=== PATIENT | female | born 1995 | race African-American/Black ===

== ENCOUNTER 2019-06-12 23:41 | Emergency (ER) | payer MEDICAID ==
[~2019-06-12] VITALS: Ht 165.1 cm; Wt 97.5 kg
[2019-06-13 08:30] VITALS: BP 120/70
[2019-06-13] MEDS ORDERED: IBUPROFEN 800 MG TAB PO ONE (08:45)
[2019-06-13] MEDS ORDERED: METHOCARBAMOL 500 MG TAB PO ONE (08:45)
== END 2019-06-13 08:57 | disposition home or self-care (01) ==
LOC: ER 23:43
DX: M54.5 Low back pain (principal); M54.2 Cervicalgia; V49.49XA Driver injured in collision with other motor vehicles in traffic accident, initial encounter; Y93.89 Activity, other specified; Y99.8 Other external cause status; Y92.89 Other specified places as the place of occurrence of the external cause
CPT/HCPCS: 72040; 72100